=== PATIENT | female | born 1975 | race Two or more races ===

== ENCOUNTER 2016-08-29 09:15 | Emergency (ER) | payer SELFPAY ==
[2016-08-29 10:19] VITALS: BP 118/64
== END 2016-08-29 10:19 | disposition home or self-care (01) ==
LOC: ED 09:15
DX: S13.9XXA Sprain of joints and ligaments of unspecified parts of neck, initial encounter (principal); V49.40XA Driver injured in collision with unspecified motor vehicles in traffic accident, initial encounter; Y93.89 Activity, other specified; Y92.89 Other specified places as the place of occurrence of the external cause; Y99.8 Other external cause status